=== PATIENT | male | born 1990 | race Two or more races ===

== ENCOUNTER 2017-03-18 02:31 | Emergency (ER) | payer BC, OTHER ==
[~2017-03-18] VITALS: Ht 177.8 cm; Wt 59.0 kg
[2017-03-18 02:31] VITALS: BP 131/84
== END 2017-03-18 03:25 | disposition home or self-care (01) ==
LOC: ER 02:33
DX: S01.81XA Laceration without foreign body of other part of head, initial encounter (principal); W26.8XXA Contact with other sharp object(s), not elsewhere classified, initial encounter; Y93.89 Activity, other specified; Y92.89 Other specified places as the place of occurrence of the external cause; Y99.9 Unspecified external cause status
CPT/HCPCS: A4606; A6403; Z7610